=== PATIENT | male | born 1965 | race Caucasian/White ===

== ENCOUNTER 2017-12-10 09:31 | Emergency (ER) | payer BC ==
[2017-12-10] MEDS ORDERED: Lidocaine 1% 20 ML MDV ONE (09:59)
[2017-12-10] MEDS ORDERED: Bacitracin Zinc 1 Packet ONE (10:46)
== END 2017-12-10 10:51 | disposition home or self-care (01) ==
LOC: BURERS 09:31
DX: S81.011A Laceration without foreign body, right knee, initial encounter (principal); I10 Essential (primary) hypertension; W18.30XA Fall on same level, unspecified, initial encounter
CPT/HCPCS: 12002; 90471; J2001

== ENCOUNTER 2019-12-24 13:23 | Outpatient (CLI) | payer BC ==
--- NOTE | 2019-12-24 14:33 | RAD ---
LEFT SHOULDER 3 VIEWS: DATE: 12/24/2019. FINDINGS: No fracture or AC joint widening was seen. A cervical rib is noted on the left as well as some degen erative changes in the cervical spine. IMPRESSION: No acute shoulder finding. POS: HOME
== END 2019-12-24 13:24 | disposition home or self-care (01) ==
LOC: BURRAD 13:23
PROVIDERS: ATTEND Nurse Practitioner Family
DX: M25.512 Pain in left shoulder (principal); W19.XXXD Unspecified fall, subsequent encounter